=== PATIENT | female | born 2000 | race African-American/Black ===

== ENCOUNTER 2022-10-27 16:52 | Observation (INO) | payer MEDICAID ==
[~2022-10-27] VITALS: Ht 157.5 cm; Wt 56.7 kg
[2022-10-27] MEDS ORDERED: LACTATED RINGERS 1,000 ML IV ONE (18:00)
[2022-10-27 18:31] LABS: CLARITY URINE CLOUDY (CLEAR); COLOR URINE YELLOW (YELLOW); GLUCOSE URINE NEGATIVE (NEGATIVE); KETONES URINE NEGATIVE (NEGATIVE); LEUKOCYTE ESTERASE URINE NEGATIVE (NEGATIVE); NITRITE URINE NEGATIVE (NEGATIVE); OCCULT BLOOD URINE NEGATIVE (NEGATIVE); PROTEIN URINE NEGATIVE (NEGATIVE); SPECIFIC GRAVITY URINE 1.014 (1.005-1.030); UROBILINOGEN URINE 0.2 E.U./dL (0.2-1.0)
[2022-10-27 19:01] LABS: BACTERIA URINE 3+; RBC URINE 0-2 /hpf (0-2); SQUAMOUS EPITHELIAL CELL URINE 2+ /lpf (RARE/1+)
[2022-10-27 19:02] LABS: WBC URINE 0-2 /hpf (0-2)
[2022-10-27] MEDS ORDERED: CEFAZOLIN 2,000 MG in DEXT 5% WATER 100 ML IV SCH (21:00)
[2022-10-27] MEDS ORDERED: PNV11TAB5 PO (21:08)
== END 2022-10-27 21:45 | disposition home or self-care (01) ==
LOC: 8 EST LDRP 16:52
PROVIDERS: ADMIT Obstetrics & Gynecology; ATTEND Obstetrics & Gynecology
DX: O99.891 Other specified diseases and conditions complicating pregnancy (principal); M54.9 Dorsalgia, unspecified; O26.892 Other specified pregnancy related conditions, second trimester; R10.30 Lower abdominal pain, unspecified; O62.9 Abnormality of forces of labor, unspecified; Z3A.26 26 weeks gestation of pregnancy
CPT/HCPCS: 59025; 96361; 96365; 81003; 76818; 76805; 76817; J0690; J7060; G0378 ×2; 96360; 99281